=== PATIENT | female | born 1950 | race Caucasian/White ===

== ENCOUNTER 2018-01-25 12:30 | Inpatient (IN) | payer OTHER ==
[~2018-01-25] VITALS: Ht 12.7 cm; Wt 5.0 kg
[2018-01-25] MEDS ORDERED: COZAAR50 MG PO (15:52)
[2018-01-25] MEDS ORDERED: ZYRTEC10 M3 PO (15:53)
[2018-01-25] MEDS ORDERED: SYNTHROID75 MCG PO (15:53)
[2018-01-25] MEDS ORDERED: SERTRALINE HCL25 MG PO (15:53)
[2018-01-25] MEDS ORDERED: SINGULAIR10 MG PO (15:54)
[2018-02-02] MEDS ORDERED: DOCUSATE SODIU100 MG PO (11:44)
[2018-02-02] MEDS ORDERED: PERCOCET 5-3251 EACH PO (11:45)
[2018-02-02] MEDS ORDERED: CLONAZEPAM1 MG PO (11:45)
== END 2018-02-02 16:24 | DRG 454 ==
LOC: SURH 02-01 04:50 → O/R 02-01 04:50 → SURH 02-01 07:00
PROVIDERS: Orthopaedic Surgery Orthopaedic Surgery of the Spine
PROC: 0RG2071 Fusion of 2 or more Cervical Vertebral Joints with Autologous Tissue Substitute, Posterior Approach, Posterior Column, Open Approach (ICD-10-PCS; 2018-02-01)
PROC: 0RT30ZZ Resection of Cervical Vertebral Disc, Open Approach (ICD-10-PCS; 2018-02-01)
PROC: 07DS3ZZ Extraction of Vertebral Bone Marrow, Percutaneous Approach (ICD-10-PCS; 2018-02-01)
PROC: 0RG20A0 Fusion of 2 or more Cervical Vertebral Joints with Interbody Fusion Device, Anterior Approach, Anterior Column, Open Approach (ICD-10-PCS; principal; 2018-02-01 07:00)
DX: M50.021 Cervical disc disorder at C4-C5 level with myelopathy (principal); M47.12 Other spondylosis with myelopathy, cervical region; G83.82 Anterior cord syndrome; I10 Essential (primary) hypertension; E03.8 Other specified hypothyroidism

== ENCOUNTER 2024-11-23 10:00 | Inpatient (IN) | payer OTHER ==
[~2024-11-23] VITALS: Ht 160 cm; Wt 61.2 kg
[~2024-11-23 10:00] MED LIST: CLONAZEPAM1 MG PO; COZAAR50 MG PO; DOCUSATE SODIU100 MG PO; PERCOCET 5-3251 EACH PO; SERTRALINE HCL25 MG PO; SINGULAIR10 MG PO; SYNTHROID75 MCG PO; ZYRTEC10 M3 PO
[2024-11-23 11:53] VITALS: BP 139/75
[2024-11-29] MEDS ORDERED: HEPARIN SODIUM,PORCINE 500 UNITS/5 ML VIAL IV ONE (08:45)
[2024-11-29] MEDS ORDERED: BUPIVACAINE HCL 30 ML VIAL IJ ONE ×2 (08:45→18:00)
[2024-11-29] MEDS ORDERED: LIDOCAINE HCL 1%/EPINEPHRINE 20ML VIAL IJ ONE ×3 (08:45→18:00)
[2024-11-29] MEDS ORDERED: CEFAZOLIN SODIUM 1,000 MG VIAL IV ONE (08:45)
[2024-11-29] MEDS ORDERED: BUPIVACAINE HCL/Mpf 0.5% 10ML VIAL ONE (16:11)
[2024-11-29] MEDS ORDERED: SUGAMMADEX SODIUM 200 MG/2 ML VIAL IV ONE (17:54)
[2024-11-29] MEDS ORDERED: CEFTRIAXONE SODIUM 2,000 MG VIAL IV ONE (18:00)
[2024-11-29] MEDS ORDERED: METRONIDAZOLE/SODIUM CHLORIDE 500 MG/100 ML PIGGYBACK IV ONE (18:00)
[2024-11-29] MEDS ORDERED: ONDANSETRON HCL 2 MG/ML VIAL IV PRN (19:45)
[2024-11-29] MEDS ORDERED: MORPHINE SULFATE 4 MG/ML CARTRIDGE IV PRN (19:45)
[2024-11-29] MEDS ORDERED: DEXTROSE 50 % IN WATER 0.5 G/ML VIAL IV PRN (19:45)
[2024-11-29] MEDS ORDERED: RINGERS SOLUTION,LACTATED 1,000 ML IV SCH (19:45)
[2024-11-29] MEDS ORDERED: OxyCODONE HCL 5 MG TABLET (ROXICODONE) PO PRN (19:45)
[2024-11-29] MEDS ORDERED: RACEPINEPHRINE HCL 0.5 ML AMPUL IH ONE (19:51)
[2024-11-29] MEDS ORDERED: ACETAMINOPHEN 500 MG GEL..CAP PO SCH (20:00)
[2024-11-29] MEDS ORDERED: DEXAMETHASONE SODIUM PHOSP/PF 10 MG/ML VIAL ONE (20:11)
[2024-11-29] MEDS ORDERED: FAMOTIDINE/PF 20 MG/2 ML VIAL ONE (20:25)
[2024-11-29] MEDS ORDERED: FAMOTIDINE/PF 20 MG/2 ML VIAL IV PUSH SCH (21:00)
[2024-11-29] MEDS ORDERED: SIMETHICONE 125 MG CAPSULE PO SCH (21:00)
[2024-11-29] MEDS ORDERED: FF) FLECAINIDE ACETATE 50MG TAB PO SCH (21:00)
[2024-11-29] MEDS ORDERED: ENALAPRILAT DIHYDRATE 1.25 MG/ML VIAL IV PRN (21:00)
[2024-11-29] MEDS ORDERED: MORPHINE SULFATE 4 MG/ML VIAL IV ONE ×2 (21:05→22:35)
[2024-11-29 23:13] LABS: BASO % 0.6 % (0.1-1.2); EOS # 0.09 (0.04-0.54); EOS % 0.4 % (0.7-7.0); LYMPH # 1.84 (1.18-3.74); LYMPH % 8.6 % (19.3-53.1); MEAN PLATELET VOLUME 12.10 fl (9.4-12.4); MONO # 0.55 (0.24-0.82); MONO % 2.6 % (4.7-12.5); NEUT # 18.63 (1.56-6.13); NEUT % 87.3 % (34.0-71.1); RED CELL DISTRIBUTION WIDTH 13.3 % (11.6-14.4)
[2024-11-30] MEDS ORDERED: METOCLOPRAMIDE HCL 5 MG/ML VIAL ONE (00:24)
[2024-11-30] MEDS ORDERED: GABAPENTIN 300 MG CAPSULE PO ONE ×2 (00:24→08:05)
[2024-11-30] MEDS ORDERED: METOCLOPRAMIDE HCL 5 MG/ML VIAL IV SCH (01:00)
[2024-11-30] MEDS ORDERED: GABAPENTIN 300 MG CAPSULE PO SCH (01:00)
[2024-11-30] MEDS ORDERED: MORPHINE SULFATE 4 MG/ML VIAL IV ONE (02:00)
[2024-11-30] MEDS ORDERED: CELECOXIB 200 MG CAPSULE PO SCH (05:00)
[2024-11-30] MEDS ORDERED: LEVOTHYROXINE SODIUM 50 MCG TABLET PO SCH (06:00)
[2024-11-30 06:42] LABS: BASO % 0.1 % (0.1-1.2); EOS # 0.00 (0.04-0.54); EOS % 0.0 % (0.7-7.0); LYMPH # 0.20 (1.18-3.74); LYMPH % 1.5 % (19.3-53.1); MEAN PLATELET VOLUME 11.80 fl (9.4-12.4); MONO # 0.12 (0.24-0.82); MONO % 0.9 % (4.7-12.5); NEUT # 12.65 (1.56-6.13); NEUT % 97.2 % (34.0-71.1); RED CELL DISTRIBUTION WIDTH 13.0 % (11.6-14.4)
[2024-11-30 07:12] LABS: BUN CREA RATIO 18.0 (7.0-25.0); CREATININE SERUM 0.68 mg/dL (0.55-1.02); GFR 84.35; GLUCOSE FASTING 143.0 mg/dL (65-100); OSMOLALITY SERUM 285.0 MOSM/KG (275-295)
[2024-11-30] MEDS ORDERED: ONDANSETRON HCL 2 MG/ML VIAL ONE (07:48)
[2024-11-30] MEDS ORDERED: HYOSCYAMINE SULFATE 0.125 MG TAB.SUBL ONE (08:04)
[2024-11-30] MEDS ORDERED: SIMETHICONE 125 MG CAPSULE PO ONE (08:04)
[2024-11-30] MEDS ORDERED: ACETAMINOPHEN 500 MG GEL..CAP PO ONE (08:04)
[2024-11-30] MEDS ORDERED: FAMOTIDINE/PF 20 MG/2 ML VIAL ONE (08:05)
[2024-11-30] MEDS ORDERED: LACTOBACILLUS ACIDOPHILUS 1 CAP CAP PO SCH (09:00)
[2024-11-30] MEDS ORDERED: HYOSCYAMINE SULFATE 0.125 MG TAB.SUBL SL SCH (09:00)
[2024-11-30] MEDS ORDERED: DILTIAZEM HCL 120 MG CAP.SR.24H PO SCH (09:00)
[2024-11-30 12:00] VITALS: BP 131/71; O2SAT 95
[2024-11-30] MEDS ORDERED: LACTULOSE 20 G/30 ML BLIST.PACK PO SCH (17:00)
[2024-11-30] MEDS ORDERED: MONTELUKAST SODIUM 10 MG TABLET PO SCH (17:00)
[2024-11-30] MEDS ORDERED: ENOXAPARIN SODIUM 40 MG/0.4 ML SYRINGE SUBCUTANEO SCH (17:00)
[2024-11-30 17:24] VITALS: BP 147/65; O2SAT 95
[2024-11-30 21:39] VITALS: O2SAT 90
[2024-11-30 23:56] VITALS: O2SAT 94
[2024-12-01] VITALS (7 sets, daily range): BP systolic 116–126; BP diastolic 56–66; O2SAT 93–99
[2024-12-01] MEDS ORDERED: PATIENTS OWN MEDICATION (MEDICAMENTO EN PISO) PO SCH (09:00)
[2024-12-01] MEDS ORDERED: ENOXAPARIN SODIUM 40 MG/0.4 ML SYRINGE SUBCUTANEO SCH (09:00)
[2024-12-01] MEDS ORDERED: SUGAMMADEX SODIUM 200 MG/2 ML VIAL IV ONE (13:30)
[2024-12-01] MEDS ORDERED: SUCRALFATE 1 G TABLET PO NR (18:00)
[2024-12-02] VITALS (8 sets, daily range): BP systolic 134–160; BP diastolic 59–80; O2SAT 90–97
[2024-12-02] MEDS ORDERED: SUCRALFATE 1 G TABLET PO SCH (09:00)
== END 2024-12-02 17:44 | disposition home or self-care (01) | DRG 331 ==
LOC: SURH 11-29 10:00 → O/R 11-29 10:19 → SURH 11-29 10:19
PROVIDERS: ADMIT Colon & Rectal Surgery; ATTEND Colon & Rectal Surgery
PROC: 0DT84ZZ Resection of Small Intestine, Percutaneous Endoscopic Approach (ICD-10-PCS; principal; 2024-11-29 18:15)
PROC: 4A12X4Z Monitoring of Cardiac Electrical Activity, External Approach (ICD-10-PCS; 2024-11-30)
DX: K50.112 Crohn's disease of large intestine with intestinal obstruction (principal); I10 Essential (primary) hypertension; E03.9 Hypothyroidism, unspecified